=== PATIENT | female | born 1960 | race Caucasian/White ===

== ENCOUNTER → 2020-05-24 | Outpatient (CLI) | payer OTHER ==
[~2020-05-24] MED LIST: CARV3.1230 PO; OMEP20TA63 PO
== END ==
LOC: LAB 13:12
PROVIDERS: ATTEND Nurse Anesthetist, Certified Registered
DX: Z01.812 Encounter for preprocedural laboratory examination (principal); Z20.828 Contact with and (suspected) exposure to other viral communicable diseases
CPT/HCPCS: U0003

== ENCOUNTER → 2020-05-27 | Day surgery (SDC) | payer OTHER ==
[~2020-05-27] MED LIST changes: +ACETAMINOPHEN 325 MG TABLET PO PRN; +ALBUTEROL SULFATE 2.5 MG/3 ML NEBU. NEB PRN; +ATROPINE 0.5 MG/5 ML DISP.SYRIN. IV PRN; +IV RINGERS SOLUTION,LACTATED 1,000 ML IV SCH; +MIDAZOLAM HCL PF 2 MG/2 ML VIAL. IV PRN; +ONDANSETRON PF 4 MG/2 ML VIAL. IV PRN; +PHENOL ORAL SPRAY 177ML BOTTLE. MM PRN; +PROPOFOL 10,000 MCG/ML (20ML) VIAL IV ONE; +diphenhydrAMINE 50 MG/ML VIAL IV PRN
[2020-05-27 13:20] VITALS: BP 162/85
--- NOTE | 2020-06-03 12:21 | PATHOLOGY ---
[facility] Accession Number: [id number] . 01 Material submitted: . gastrointestinal site - BIOPSY ANTRUM . 01 Clinical history: . GERD, DYSPHAGIA EGD WITH BIOPSY AND DILATION . 02 Diagnosis: Gastric biopsies, antrum: - Chronic gastritis, mild. (JPM:respiratory care program director; 06/02/2020) R 06/02/2020 1221 Local . 02 Comment: Sections of the gastric biopsy reveal segments of gastric antral mucosa showing congestion and mild chronic inflammation. A properly controlled immunoperoxidase stain for Helicobacter is negative for Helicobacter organisms. (JPM:respiratory care program director; 06/02/2020) . Special stain performed: Immunoperoxidase stain for Helicobacter on A1. . 02 Electronically signed: . Dillon Maldonado MD, Pathologist NPI- [id number] . 01 Gross description: . The specimen is received in formalin, labeled "Faye Sullivan, biopsy antrum". Received are two segments of pale cunningham soft tissue ranging in size from 0.3 to 0.5 cm in maximum dimensions. The specimen is submitted entirely in cassette A1. ([facility]; 06/01/2020) QA/QA 06/01/2020 1055 Local . 02 Pathologist provided ICD-10: K29.50 . 02 CPT . 466517, [id number] Specimen Comment: A courtesy copy of this report has been sent to [phone] Specimen Comment: Report sent to Specimen Comment: A duplicate report has been generated due to demographic updates. Performed at: 01 [facility] [address], [place] [id number] MD Syed Julian MD Phone: [phone] Performed at: [facility] [address], [place] [id number] MD Dillon Maldonado MD Phone: [phone]
== END | disposition home or self-care (01) ==
LOC: SURG 10:36
PROVIDERS: ATTEND Internal Medicine Gastroenterology
DX: R13.10 Dysphagia, unspecified (principal); R12 Heartburn; K21.9 Gastro-esophageal reflux disease without esophagitis; K22.2 Esophageal obstruction; K29.50 Unspecified chronic gastritis without bleeding; Z88.0 Allergy status to penicillin; Z91.040 Latex allergy status; Z79.899 Other long term (current) drug therapy
CPT/HCPCS: 43239; 43249; 88305; 88342; J2704; J7120; 43450

== ENCOUNTER → 2021-03-14 | Outpatient (CLI) | payer OTHER ==
[2020-05-27 13:20] VITALS: BP 162/85
[~2021-03-14] MED LIST changes: -ACETAMINOPHEN 325 MG TABLET PO PRN; -ALBUTEROL SULFATE 2.5 MG/3 ML NEBU. NEB PRN; -ATROPINE 0.5 MG/5 ML DISP.SYRIN. IV PRN; -IV RINGERS SOLUTION,LACTATED 1,000 ML IV SCH; -MIDAZOLAM HCL PF 2 MG/2 ML VIAL. IV PRN; -ONDANSETRON PF 4 MG/2 ML VIAL. IV PRN; -PHENOL ORAL SPRAY 177ML BOTTLE. MM PRN; -PROPOFOL 10,000 MCG/ML (20ML) VIAL IV ONE; -diphenhydrAMINE 50 MG/ML VIAL IV PRN
--- NOTE | 2021-03-14 16:02 | RAD ---
EXAM: ULTRASOUND ABDOMEN COMPLETE CLINICAL HISTORY: Reason: ABNORMAL RESULTS OF LIVER FUNCTION STUDIES / Spl. Instructions: / History: COMPARISON: None available. TECHNIQUE: Ultrasound of the upper abdomen was performed. FINDINGS: The liver length measures 15.9 cm. Moderate increased echogenicity identified throughout the liver li robin hepatic steatosis. The common bile duct measures 3 mm in transverse dimension. The visualized ao rta, IVC within normal limits of dimension. The gallbladder is mildly distended. The gallbladder wall thickness measures 1.5 mm. The right kidney measures 9.0 x 4.4 x 5.0 cm. The left kidney measures 9. 3 x 4.5 x 4.9 cm. The spleen measures 9.1 cm in length. The visualized pancreas grossly appears unrem arkable. IMPRESSION: Hepatic steatosis Electronically signed by: Cory Mann MD (03/14/2021 4:00 PM) [id number]
== END ==
LOC: US 12:35
PROVIDERS: ATTEND Family Medicine
DX: K76.0 Fatty (change of) liver, not elsewhere classified (principal); K82.8 Other specified diseases of gallbladder; R94.5 Abnormal results of liver function studies
CPT/HCPCS: 76700